=== PATIENT | male | born 1960 | race African-American/Black ===

== ENCOUNTER 2020-04-29 12:01 | Emergency (ER) | payer MEDICAID ==
[~2020-04-29] VITALS: Ht 180.3 cm; Wt 98.0 kg
[~2020-04-29 12:01] MED LIST: no home medications
[2020-04-29 14:00] VITALS: BP 122/78
== END 2020-04-29 14:00 | disposition home or self-care (01) ==
LOC: ER 12:01
DX: S02.40EA Zygomatic fracture, right side, initial encounter for closed fracture (principal); S02.2XXA Fracture of nasal bones, initial encounter for closed fracture; F17.200 Nicotine dependence, unspecified, uncomplicated; W18.09XA Striking against other object with subsequent fall, initial encounter; Y93.89 Activity, other specified; Y92.89 Other specified places as the place of occurrence of the external cause; Y99.8 Other external cause status
CPT/HCPCS: 70486; 71045; 99285

== ENCOUNTER 2023-01-08 11:26 | Inpatient (IN) | payer MEDICAID ==
[~2023-01-08] VITALS: Ht 180.3 cm; Wt 88.2 kg
[2023-01-08 15:20] LABS: BASOPHILS % 0.7 % (0.0-2.0); DIFFERENTIAL COMMENT 0; EOSINOPHILS % 2.4 % (0.0-5.0); HEMATOCRIT. 37.6 % (42.0-52.0); HEMOGLOBIN. 13.2 g/dL (14.0-18.0); LYMPHOCYTES % 41.7 % (20.0-50.0); MEAN CORPUSCULAR HEMOGLOBIN 37.5 pg (28.0-32.0); MEAN CORPUSCULAR HGB CONC 35.1 g/dL (31.0-37.0); MEAN CORPUSCULAR VOLUME 106.7 fL (80.0-94.0); MEAN PLATELET VOLUME 9.3 fl (7.4-10.4); NEUTROPHILS % 42.2 % (40.0-76.0); PLATELET 142 x1000/uL (130-400); RED BLOOD CELL COUNT 3.52 mill/uL (4.7-6.1); RED CELL DISTRIBUTION WIDTH 13.9 % (11.6-14.6); WHITE BLOOD COUNT 6.3 x1000/uL (4.5-11.0)
[2023-01-08 15:29] LABS: INR 1.1; PROTHROMBIN TIME 11.3 sec (9.6-11.0)
[2023-01-08 15:30] LABS: CHLORIDE 104 mEq/L (98-107); INDEX HEMOLYSI 3 (1-3); INDEX ICTERIC 1 (1-4); INDEX LIPEMIC 1 (1-3); SODIUM 138 mEq/L (136-145)
[2023-01-08 15:41] LABS: ALANINE AMINOTRANSFERASE 38 IU/L (13-61); ALBUMIN 3.7 g/dL (3.4-5.0); ASPARTATE AMINOTRANSFERASE 35 IU/L (15-37); BILIRUBIN TOTAL 0.4 mg/dL (0.1-1.0); CALCIUM 6.1 mg/dL (8.5-10.1); CARBON DIOXIDE 25 mEq/L (21-32); CREATININE 1.1 mg/dL (0.6-1.3); GLUCOSE 112 mg/dL (70-105); PROTEIN TOTAL 8.2 g/dL (6.0-8.3); TROPONIN I HIGH SENSITIVITY 10 ng/L (<78); UREA NITROGEN BLOOD 17 mg/dL (7-21)
[2023-01-08 15:53] LABS: POTASSIUM 2.6 mEq/L (3.5-5.1)
[2023-01-08 17:00] LABS: TROPONIN I HIGH SENSITIVITY 9 ng/L (<78)
[2023-01-08] MEDS ORDERED: POTASSIUM CHLORIDE INJ 40 MEQ in DEXT 5% WATER 500 ML IV ONE (17:15)
[2023-01-08] MEDS ORDERED: POTASSIUM CHLORIDE 20MEQ/PACKET PO ONE (17:15)
[2023-01-08] MEDS ORDERED: MAGNESIUM 2 G PREMIX 50 ML IV ONE (17:15)
[2023-01-08 23:45] VITALS: BP 125/79; PULSE 18; PULSE 78; RESP 18; TEMP 97.5
[2023-01-09] VITALS: BP_SYST 125; BP_SYST 132; BP_DIAS 78; BP_DIAS 79; PULSE 17; PULSE 85; RESP 17; RESP 18; TEMP 97.5; TEMP 97.7
[2023-01-09 04:00] VITALS: BP 119/66; PULSE 74; RESP 18; TEMP 97.7; TEMP 97.9
[2023-01-09 08:00] VITALS: BP 104/71; PULSE 76; RESP 18; TEMP 96.5
[2023-01-09] MEDS ORDERED: ASPIRIN 81MG TABLET PO SCH (09:00)
[2023-01-09 11:01] LABS: BASOPHILS % 0.6 % (0.0-2.0); DIFFERENTIAL COMMENT 0; EOSINOPHILS % 3.3 % (0.0-5.0); HEMATOCRIT. 37.2 % (42.0-52.0); HEMOGLOBIN. 12.7 g/dL (14.0-18.0); LYMPHOCYTES % 38.3 % (20.0-50.0); MEAN CORPUSCULAR HEMOGLOBIN 36.8 pg (28.0-32.0); MEAN CORPUSCULAR HGB CONC 34.1 g/dL (31.0-37.0); MEAN CORPUSCULAR VOLUME 107.9 fL (80.0-94.0); MEAN PLATELET VOLUME 9.7 fl (7.4-10.4); MONOCYTES % 13.6 % (2.0-8.0); NEUTROPHILS % 44.2 % (40.0-76.0); PLATELET 139 x1000/uL (130-400); RED BLOOD CELL COUNT 3.44 mill/uL (4.7-6.1); RED CELL DISTRIBUTION WIDTH 13.9 % (11.6-14.6); WHITE BLOOD COUNT 5.5 x1000/uL (4.5-11.0)
[2023-01-09 11:10] LABS: CHLORIDE 108 mEq/L (98-107); INDEX HEMOLYSI 1 (1-3); INDEX ICTERIC 1 (1-4); INDEX LIPEMIC 1 (1-3); SODIUM 142 mEq/L (136-145)
[2023-01-09 11:24] LABS: ALANINE AMINOTRANSFERASE 39 IU/L (13-61); ALBUMIN 3.4 g/dL (3.4-5.0); ASPARTATE AMINOTRANSFERASE 35 IU/L (15-37); BILIRUBIN TOTAL 0.3 mg/dL (0.1-1.0); CALCIUM 6.5 mg/dL (8.5-10.1); CARBON DIOXIDE 27 mEq/L (21-32); CHOLESTEROL 152 mg/dL (<200); CREATINE KINASE 366 IU/L (39-308); GLUCOSE 123 mg/dL (70-105); HDL CHOLESTEROL 42 mg/dL (40-59); LDL CHOLESTEROL 88 mg/dL (5-100); NT PRO B-TYPE NATRIURETIC PEP 126 pg/mL (5-125); PROTEIN TOTAL 7.5 g/dL (6.0-8.3); TRIGLYCERIDE 299 mg/dL (0-150); UREA NITROGEN BLOOD 13 mg/dL (7-21)
[2023-01-09 12:00] VITALS: BP 135/77; PULSE 94; RESP 18; TEMP 97.2
[2023-01-09] MEDS ORDERED: MAGNESIUM OXIDE 400MG TABLET PO NR (14:30)
[2023-01-09] MEDS ORDERED: MAGNESIUM 2 G PREMIX 50 ML IV NR (14:30)
[2023-01-09 16:19] VITALS: BP 135/77; PULSE 94; TEMP 97.2; O2SAT 98
== END 2023-01-09 16:50 | disposition home or self-care (01) | DRG 425 ==
LOC: ER 11:37 → 7WST 20:41 → EDBEDREQ 21:02 → EDBEDREQTM 21:02 → ENRESERV 21:57
PROVIDERS: ADMIT Internal Medicine; ATTEND Internal Medicine
DX: E87.6 Hypokalemia (principal); D64.9 Anemia, unspecified; E83.42 Hypomagnesemia; F17.210 Nicotine dependence, cigarettes, uncomplicated; Z88.0 Allergy status to penicillin
CPT/HCPCS: 36415; 71045; 80053; 80061; 82550; 83036; 83735; 83880; 84484; 85025; 93005; 99285; J3475; J3480; J7060